=== PATIENT | female | born 1995 | race Caucasian/White ===

== ENCOUNTER 2016-08-25 08:16 | Observation (INO) | payer OTHER ==
[2016-08-25] MEDS ORDERED: LIDO/EPI 1% **Not for Epidural 20 ML MDV ONE (08:28)
[2016-08-25] MEDS ORDERED: LR 1,000 ML IV ONE (09:33)
[2016-08-25] MEDS ORDERED: ONDANSETRON 4 MG/2 ML VIAL IVP PRN (09:45)
[2016-08-25] MEDS ORDERED: MIDAZOLAM 2 MG/2 ML VIAL ONE (09:45)
[2016-08-25] MEDS ORDERED: D5W 1/2 NS W/ 20 KCl/L 1,000 ML IV SCH (09:45)
[2016-08-25] MEDS ORDERED: PROPOFOL 200 MG/20 ML VIAL ONE ×2 (09:48)
[2016-08-25] MEDS ORDERED: fentaNYL 100 MCG/2 ML INJ ONE ×3 (09:48→11:58)
[2016-08-25] MEDS ORDERED: ACETAMINOPHEN 500 MG TAB PO PRN (09:49)
[2016-08-25] MEDS ORDERED: LIDOCAINE 2% 100 MG/5 ML SYR ONE (09:49)
[2016-08-25] MEDS ORDERED: DEXAMETHASONE 4 MG/ML VIAL ONE ×2 (09:54)
[2016-08-25] MEDS ORDERED: ceFAZolin 2 GM/DEXTROSE 100 ML IV ONE (10:00)
[2016-08-25] MEDS ORDERED: DEXAMETHASONE 10 MG/ML VIAL IVP ONE (10:00)
--- NOTE | 2016-08-25 11:27 | POSTOPPROG ---
Post Op Note Date of Operation: 08/26/16 Surgeon: Stephanie Michael Anesthesiologist: Rubi Anesthesia: GET(General Endotracheal) Pre-op Diagnosis: TGDC Post-op Diagnosis: TGDC Procedure: Lesley procedure Findings: indurated area of skin, tract to hyoid. Inf/Abcess present in the surg proc area at time of surgery?: No Depth: Superfical (Skin SQ) EBL: Minimal Complications: none apparent Drains: Siria Specimen(s): TGDC + hyoid
[2016-08-25] MEDS ORDERED: HYDROmorphONE/DILAUDID 1 MG/ML SYR ONE (12:10)
[2016-08-25] MEDS ORDERED: BACITRACIN OINTMENT 1 PACKET TP ONE (14:08)
[2016-08-25] MEDS: OXYCODONE/APAP 5/325 TAB PO PRN ×2 (14:11→20:11)
[2016-08-26 04:12] VITALS: RESP 16
[2016-08-26] MEDS: OXYCODONE/APAP 5/325 TAB PO PRN (04:13)
[2016-08-26 07:41] VITALS: TEMP 98; O2SAT 95
[2016-08-26 13:03] VITALS: BP 114/63; PULSE 83
--- NOTE | 2016-08-26 13:22 | SOAPPROG ---
SOAP Progress Note Assessment/Plan: Assessment: POD 1 TGDC removal. DOing well, taking po. Pain controlled. DC home with abx and pain meds. RTC 1 week for suture removal Plan: 08/26/16 13:20 Subjective: Did well o/n. Tolerating po. No o2 needs. Ready to dc Objective: AFVSS RA incision c/d/i aria removed neck flat no hematoma Vital Signs Temp Pulse Resp BP Pulse Ox 36.6 C 83 16 114/63 95 08/26/16 12:00 08/26/16 12:00 08/26/16 12:00 08/26/16 12:00 08/26/16 12:00 08/25/16 08/26/16 08/27/16 05:59 05:59 05:59 Intake Total 1950 Output Total 2100 Balance -150 ICD10 Worksheet Patient Problems: Problems Problem Status Onset Thyroglossal duct cyst Acute - ICD10 Problem Qualifiers (1) Thyroglossal duct cyst
--- NOTE | 2016-08-30 12:49 | GOP ---
[f rep st] OPERATIVE REPORT DATE OF OPERATION: 08/25/2016 SURGEON: Stephanie Michael MD ANESTHESIA: General. PREOPERATIVE DIAGNOSIS: Thyroglossal duct cyst. POSTOPERATIVE DIAGNOSIS: Thyroglossal duct cyst. PROCEDURE PERFORMED: Lesley procedure. FINDINGS: The patient was found to have a small cyst just anterior to the hyoid and seeming to be a ttached to the subcutaneous tissues. There was a tract on CT that followed straight back to the hyo id, and so this was found, followed back, and the midportion of the hyoid was taken. ESTIMATED BLOOD LOSS: Minimal. INDICATIONS: The patient is a pleasant 20-year-old woman who has what is presumed to be a thyroglos rianna duct cyst. This has been infected multiple times over the course of her life. She has not ever had an I and D, but has had to be on multiple rounds of antibiotics. She came in to see me, and it was felt that this needed to be excised. DESCRIPTION OF PROCEDURE: The patient was first seen in the preoperative area, where informed conse nt was obtained. She was then brought back to the operating room, where Anesthesia sedated and intu bated her. A shoulder roll was placed, and she was prepped and draped in a sterile fashion. I init ially placed about 5 cc of 1% lidocaine with 1:100,000 epinephrine into the region surrounding the a lópez of concern. This was then marked out, taking the midportion of skin along with this because, es pecially based on the CT scan, it looked like it came right up to the dermis, and so some skin was r emoved along with the cyst and tract. The cyst was not nearly as big as it was when I saw her in in. A 15 blade was used to make an elliptical incision around the area of concern, down through t he skin and subcutaneous tissues. Then, electrocautery was used to divide the platysma on either si de, and then using blunt and sharp dissection, it was able to find the tract of the thyroglossal glenda t cyst. This was gently released circumferentially around the strap musculature, and then following it back to the hyoid. A combination of sharp and blunt dissection was used, using a burlisher, as well as the Harmonic instrument. Once I came down to the hyoid, the suprahyoid musculature was divi ded superiorly, and then the hyoid was delineated more laterally on either side. An Allis clamp was used to grasp the midportion of the hyoid through which the tract seem to dive, and the Bovie, as w ell as some Gallegos scissors, were used to divide the hyoid on either side lateral to the tract until t his was released. A Berry was used to release the mucosa and tissue from the back surface of the hy oid, and then at this point, I did not really see any further tract, so this was tied off using a 2- 0 silk, and then the tissue was truncated behind the hyoid, and then removing the cyst tract as well as the midportion of the hyoid bone. This was sent off the field for pathology. Once this was don e, the wound was irrigated out copiously with normal saline. The tongue base and strap musculature was reapproximated with 3-0 Vicryl in an interrupted fashion, and then the platysma and subcutaneous tissues were closed using 3-0 Vicryl in an interrupted fashion. A quarter-inch [place] had previou sly been placed down near the base of the tongue, and this was sutured into place with the skin usin g 5-0 nylon in an interrupted fashion. I then closed the skin using 5-0 nylon in a running fashion, and the wound was cleaned. Bacitracin ointment was placed over it, and then it was covered. The p atient was turned back over to Anesthesia, where she was awakened and taken to PACU in stable condit ion. There were no complications, and she tolerated the procedure well. COMPLICATIONS: None. /[id number]/MODL
== END 2016-08-26 15:57 | disposition home or self-care (01) ==
LOC: F3N 08:16 → F3E 12:49
PROVIDERS: ADMIT Otolaryngology; ATTEND Otolaryngology
PROC: 0JB40ZZ Excision of Right Neck Subcutaneous Tissue and Fascia, Open Approach (ICD-10-PCS; principal; 2016-08-25 09:30)
DX: Q89.2 Congenital malformations of other endocrine glands (principal); G43.909 Migraine, unspecified, not intractable, without status migrainosus
CPT/HCPCS: 60280; G0378; J0690; J1100; J1170; J2001; J2250; J2405; J2704; J3010